=== PATIENT | female | born 1950 | race Caucasian/White ===

== ENCOUNTER 2022-04-24 10:23 | Outpatient (CLI) | payer OTHER, SELFPAY | END 2022-04-24 10:24 | disposition home or self-care (01) | LOC: INJ CL 10:25 | PROVIDERS: PCP Internal Medicine; Visit Provider Family Medicine | DX: M54.16 Radiculopathy, lumbar region (principal); M51.36 Other intervertebral disc degeneration, lumbar region | CPT/HCPCS: 62323; J0702; Q9966 ==

== ENCOUNTER 2024-11-24 14:05 | Outpatient (CLI) | payer OTHER, SELFPAY | END 2024-11-24 14:06 | disposition home or self-care (01) | LOC: INJ CL 14:08 | PROVIDERS: PCP Internal Medicine; Visit Provider Family Medicine | DX: M54.16 Radiculopathy, lumbar region (principal); M51.369 Other intervertebral disc degeneration, lumbar region without mention of lumbar back pain or lower extremity pain | CPT/HCPCS: 62323 ==